=== PATIENT | female | born 1975 | race Native Hawaiian/Other Pacific Islander ===

== ENCOUNTER 2020-01-04 11:57 | Emergency (ER) | payer SELFPAY ==
[2020-01-04] MEDS ORDERED: 0.9 % SODIUM CHLORIDE 1,000 ML BAG IV ONE (12:09)
[2020-01-04] MEDS ORDERED: PROCHLORPERAZINE 10 MG/2 ML VIAL IVP ONE (12:09)
[2020-01-04] MEDS ORDERED: DIPHENHYDRAMINE HCL 50 MG/ML VIAL IVP ONE ×2 (12:10→12:54)
--- NOTE | 2020-01-04 12:14 | Emergency Department Record ---
History of Present Illness - General Chief complaint: Flu Like Symptoms Stated complaint: FLU LIKE SYMPTOMS Time Seen by Provider: 01/04/20 12:09 Source: Patient Mode of Arrival: Ambulatory Limitations: No limitations - History of Present Illness Initial comments: Pt driven to the ED from home by her son with complainto f frontal LANDON onset last PM. Associated photo sensitivity and nausea with emesis x 2-3. Hx of similar in past. Took ibuprofen 800mg last night and this AM without relief. No measured temp but "felt hot". No chills. No AP, no weakness. No DM. - Related Data Home Medications Medication Instructions Recorded Confirmed Last Taken Duloxetine HCl [Cymbalta] 60 mg PO DAILY 01/04/20 01/04/20 01/04/20 Levothyroxine Sodium [Synthroid] 25 mcg PO DAILY 01/04/20 01/04/20 01/04/20 Allergies Allergy/AdvReac Type Severity Reaction Status Date / Time amoxicillin Allergy RASH Verified 01/04/20 12:05 Review of Systems Constitutional: Reports: As per HPI, Fever, Other (tactile temp). Denies: Chills, Weakness Eyes: Denies: Eye discharge ENT: Denies: Congestion Respiratory: Reports: Cough. Denies: Dyspnea, Hemoptysis, Wheezes Cardiovascular: Denies: Chest pain, Syncope Endocrine: Denies: Fatigue Gastrointestinal: Reports: As per HPI, Nausea, Vomiting. Denies: Abdominal pain, Diarrhea Musculoskeletal: Denies: Back pain Skin: Denies: Bruising, Rash Neurological: Reports: As per HPI, Headache. Denies: Confusion, Tingling, Tremors Psychiatric: Denies: Anxiety Hematological/Lymphatic: Denies: Anemia Physical Exam - General General Appearance: Alert, Oriented x3, Cooperative, Mild distress - Head Head exam: Atraumatic, Normocephalic - Eye Eye exam: Normal appearance, PERRL, EOMI - ENT ENT exam: Mucous membranes moist. negative: TM's normal bilaterally Ear exam: Normal external inspection Nasal Exam: Normal inspection Mouth exam: Normal external inspection Teeth exam: Normal inspection Throat exam: Normal inspection - Neck Neck exam: Normal inspection, Full ROM. negative: Lymphadenopathy, Meningismus, Tenderness - Respiratory Respiratory exam: Normal lung sounds bilaterally. negative: Respiratory distress, Rhonchi, Wheezes - Cardiovascular Cardiovascular Exam: Regular rate, Normal rhythm. negative: Tachycardia - GI/Abdominal GI/Abdominal exam: Soft, Normal bowel sounds. negative: Distended, Tenderness - Rectal Rectal exam: Deferred - exam: Deferred - Extremities Extremities exam: Normal inspection - Back Back exam: Reports: Normal inspection - Neurological Neurological exam: Alert, CN II-XII intact, Normal gait, Oriented X3. negative: Motor sensory deficit - Psychiatric Psychiatric exam: Normal affect, Normal mood. negative: Agitated - Skin Skin exam: Normal color. negative: Rash Course - Reevaluation(s) Reevaluation #1: 01/04/20 12:13 LANDON with nausea and photo sensitive. Will treat as outline and recheck. No fever. Reevaluation #2: 01/04/20 13:02 LANDON better with meds. Legs "restless" - additional 25mg IV benadryl given. Plan is for home. Improved. Disposition Disposition: Discharge Clinical Impression: Headache Qualifiers: Headache type: unspecified Headache chronicity pattern: acute headache Intractability: not intractable Qualified Code(s): R51 - Headache Migraine Qualifiers: Migraine type: unspecified Status migrainosus presence: without status migrainosus Intractability: not intractable Qualified Code(s): G43.909 - Migraine, unspecified, not intractable, without status migrainosus Condition: (1) Good Instructions: Migraine Headache (ED) Additional Instructions: Home and rest. DO NOT DRIVE today with sedating meds. Family Doctor in 2-3 days Return to the ED. Forms: Patient Portal Access Time of Disposition: 13:04 Quality - Quality Measures Quality Measures: N/A - Blood Pressure Screening Does Patient Have Any of the Following: No Blood Pressure Classification: Pre-Hypertensive BP Reading Systolic Measurement: 125 Diastolic Measurement: 84 Screening for High Blood Pressure: < Pre-Hypertensive BP, F/U Documented > [G8950] Pre-Hypertensive Follow-up Interventions: Follow-up with rescreen every year.
== END 2020-01-04 13:45 | disposition home or self-care (01) ==
LOC: ER 11:57
DX: G43.909 Migraine, unspecified, not intractable, without status migrainosus (principal); R11.0 Nausea; H53.149 Visual discomfort, unspecified
CPT/HCPCS: 99284 ×2; 96374; 96375; J1200; J0780; J7030